=== PATIENT | male | born 1960 | race Caucasian/White ===

== ENCOUNTER → 2017-01-16 | Outpatient (CLI) | payer OTHER ==
[~2017-01-16] MED LIST: ASPIRIN PO; CALAN PO; NIACIN PO; NITROGYLCERIN SUBLINGUAL; NORCO 7.5/325 T1 TAB PO; PANTOPRAZOLE SO40 MG PO; PLAVIX PO; VYTORIN 10/40 M1 TAB PO; [UNRECOGNIZED DRUG - OTHER]; [UNRECOGNIZED DRUG - REMARK]
--- NOTE | ~2017-01-16 | CR58 ---
[facility] A Service of [facility] RADIOLOGY TEXT RESULTS PATIENT: ALMA GRACE LOCATION: [facility] : 58 UNIT #: [id number] AGE: [address]: Paolo Romero MD SEX: M ORDER DR: [id number] [place] [id number] O MR#: [id number] Acc #: [id number] NAME: ALMA GRACE : 1960 SEX: M STUDY DATE/TIME: 01/16/2017 13:37 UNIT: [facility] ROOM: STUDY DESCRIPTION: CR Cervical Spine 2 or 3 Views Attending Physician: Paolo Romero M.D. Referring Physician: Paolo Romero M.D. Ordering Physician: Paolo Romero M.D. Primary Care Physician: Carmita Barkley M.D. MEDICAL IMAGING REPORT This report is preliminary unless electronic signature is present. EXAM Cervical spine 01/16/2017 COMPARISON STUDIES None. HISTORY Neck pain. TECHNIQUE AP, lateral, and open mouth views are obtained. FINDINGS The examination shows normal cervical alignment. The patient has had an anterior fusion at C5-6. There is degenerative changes of the disc at C4-5, and at C6-7, and C7-T1. No subluxations are identified. No fractures are present. CONCLUSION Postop changes of prior cervical fusion at C5-6. Degenerative disc disease above the fusion at C4-5 and below at C5-6 as well as C6-7. Dictated by... Adam Gutierrez M.D. THIS IS AN ELECTRONICALLY VERIFIED REPORT Adam Gutierrez M.D. at 01/17/2017 7:28 AM [place]/raheel TD: 01/16/2017 22:48 JOB #: [id number] MEDICAL IMAGING REPORT [facility] A Service [facility] RADIOLOGY TEXT RESULTS PATIENT: ALMA GRACE LOCATION: [facility] : 58 UNIT #: [id number] AGE: [address]: Paolo Romero MD SEX: M ORDER DR: Page 1 of 1
== END | disposition home or self-care (01) ==
LOC: SRAD 13:19
DX: M54.2 Cervicalgia (principal); M50.321 Other cervical disc degeneration at C4-C5 level; M50.322 Other cervical disc degeneration at C5-C6 level; M50.323 Other cervical disc degeneration at C6-C7 level; Z98.1 Arthrodesis status
CPT/HCPCS: 72040